=== PATIENT | male | born 1965 | race Caucasian/White ===

== ENCOUNTER 2017-04-18 19:28 | Emergency (ER) | payer OTHER | END 2017-04-18 22:06 | disposition home or self-care (01) | LOC: CED 19:28 | DX: S61.217A Laceration without foreign body of left little finger without damage to nail, initial encounter (principal); F17.200 Nicotine dependence, unspecified, uncomplicated; W26.0XXA Contact with knife, initial encounter; Y92.009 Unspecified place in unspecified non-institutional (private) residence as the place of occurrence of the external cause | CPT/HCPCS: 12002; 99283 ==